=== PATIENT | female | born 2000 | race Two or more races ===

== ENCOUNTER 2023-01-31 18:46 | Emergency (ER) | payer OTHER ==
[~2023-01-31] VITALS: Ht 157.5 cm; Wt 66.8 kg
[2023-01-31 19:20] LABS: COVID AG,FIA SOURCE NASAL SWAB
[2023-01-31 19:37] LABS: SARS-COV2 (COVID) ANTIGEN,FIA Negative (Negative)
[2023-01-31 19:39] LABS: INFLUENZA TYPE A NEGATIVE FOR TYPE A (NEGATIVE); INFLUENZA TYPE B NEGATIVE FOR TYPE B (NEGATIVE)
[2023-01-31 20:55] VITALS: BP 127/77; PULSE 103; RESP 16; TEMP 99.7
[2023-01-31] MEDS ORDERED: BENZ-39 PO (20:57)
[2023-01-31] MEDS ORDERED: ALBU18HF12 IH (20:57)
== END 2023-01-31 21:00 | disposition home or self-care (01) ==
LOC: EMS 18:48
DX: J06.9 Acute upper respiratory infection, unspecified (principal); J45.909 Unspecified asthma, uncomplicated; F17.210 Nicotine dependence, cigarettes, uncomplicated; Z98.890 Other specified postprocedural states; Z20.822 Contact with and (suspected) exposure to COVID-19
CPT/HCPCS: 87804; 99283